=== PATIENT | female | born 1950 | race American Indian/Alaskan Native ===

== ENCOUNTER 2017-12-19 11:30 | Emergency (ER) | payer OTHER, MEDICARE ==
[2017-12-19 11:47] VITALS: BP 132/83
[2017-12-19] MEDS ORDERED: MOTRIN ONE (13:32)
[2017-12-19] MEDS ORDERED: MOTRIN PO ONE ×2 (13:34→14:12)
--- NOTE | 2017-12-19 15:29 | XRay Report ---
LUMBAR SPINE RADIOGRAPHS INDICATION: Low back pain. COMPARISON: 11/23/2013. FINDINGS: AP and lateral lumbar spine radiographs again demonstrate moderate levoscoliosis apex about T12-L1 with asymmetric disc narrowing and degenerative spurring most prominent at L1-L2. Bony demineralization. Mid to lower lumbar facet arthropathy. Nonobstructive bowel gas pattern. Clear visualized lung bases. Left hemipelvic phlebolith. CONCLUSION: No acute radiographic abnormality with various degenerative changes again noted, as described. Thank you for the opportunity to participate in this patient's care.
--- NOTE | 2017-12-19 15:30 | XRay Report ---
LEFT SHOULDER RADIOGRAPHS INDICATION: Left shoulder pain. COMPARISON: None similar. FINDINGS: Frontal and Y views of the left shoulder, 3 projections demonstrate normal humeral head contour, well positioned against the glenoid. Normal acromioclavicular joint. Preserved scapular contour. Normal visualized soft tissues, left ribs and lung. Aortic knob calcifications. Demineralized bones. CONCLUSION: No acute left shoulder radiographic abnormality, as described. Thank you for the opportunity to participate in this patient's care.
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
== END 2017-12-19 17:35 | disposition home or self-care (01) ==
LOC: ED 11:30
DX: M54.5 Low back pain (principal); M79.602 Pain in left arm; F17.200 Nicotine dependence, unspecified, uncomplicated
CPT/HCPCS: 72100; 99283